=== PATIENT | female | born 1965 | race Caucasian/White ===

== ENCOUNTER 2018-05-27 08:05 | Emergency (ER) | payer BC ==
[2018-05-27 08:20] VITALS: BP 119/69
--- NOTE | 2018-05-27 08:38 | UC ---
Headache HPI - HPI Summary HPI Summary: left side headache x 5 days left side facial pain , teeth ache fatigue, ? fever , chills no nasal congestion , no cough, no ear pain or sore throat - History Of Current Complaint Chief Complaint: UCGeneralIllness Stated Complaint: SINUS COMPLAINT Time Seen by Provider: 05/27/18 08:27 Hx Obtained From: Patient Hx Last Menstrual Period: novasure ablation 2013 ?: No Onset/Duration: Gradual Onset, Lasting Days - 5, Still Present Onset Of Symptoms: Gradual Initially Headache Was: Moderate Currently Pain Is: Moderate Pain Intensity: 0 Timing: Constant Character: Pressure, Migraine Location of Headache: Other: - left side Allevating Factor(s): Nothing Associated Signs And Symptoms: Positive: Sinus Pressure. Negative: Dizziness, Seizure, Nausea, Vomiting, Fever, Neck Pain, Neck Stiffness, Decreased LOC, Visual Changes, Other (Noted In Comments) - Allergies/Home Medications Allergies/Adverse Reactions: Allergies Allergy/AdvReac Type Severity Reaction Status Date / Time nitrofurantoin Allergy Intermediate Hives Verified 05/27/18 08:20 [From Macrobid] Home Medications: Home Medications traZODone TAB* [Desyrel TAB*] 100 mg PO BEDTIME 05/27/18 [History Confirmed 01/08] PMH/Surg Hx/FS Hx/Imm Hx Neurological History: Migraine - Surgical History Surgical History: Yes Surgery Procedure, Year, and Place: 1. ablation - Family History Known Family History: Negative: Diabetes - Social History Alcohol Use: None Substance Use Type: None Smoking Status (MU): Never Smoked Tobacco When Did the Patient Quit Smoking/Using Tobacco: 25 year ago - Immunization History Most Recent Influenza Vaccination: no Review of Systems Constitutional: Negative Skin: Negative Eyes: Negative ENT: Negative Respiratory: Negative Cardiovascular: Negative Gastrointestinal: Negative Neurological: Headache Is Patient Immunocompromised?: No All Other Systems Reviewed And Are Negative: Yes Physical Exam Triage Information Reviewed: Yes Appearance: Well-Appearing, No Pain Distress, Well-Nourished Vital Signs: Initial Vital Signs Temp 98.0 F 05/27/18 08:14 Pulse 79 05/27/18 08:14 Resp 16 05/27/18 08:14 BP 119/69 05/27/18 08:14 Pulse Ox 100 05/27/18 08:14 Vital Signs Reviewed: Yes Eye Exam: Normal Eyes: Positive: Conjunctiva Clear ENT: Positive: Normal ENT inspection, Hearing grossly normal, Pharynx normal Neck: Positive: Supple, Nontender, No Lymphadenopathy Respiratory: Positive: Chest non-tender, Lungs clear, Normal breath sounds, No respiratory distress Cardiovascular: Positive: RRR, No Murmur, Pulses Normal Neurological: Positive: Alert Skin Exam: Normal Headache Course/Dx - Differential Dx/Diagnosis Provider Diagnoses: viral illness. headache Discharge - Sign-Out/Discharge Documenting (check all that apply): Patient Departure All imaging exams completed and their final reports reviewed: No Studies - Discharge Plan Condition: Stable Disposition: HOME Patient Education Materials: Viral Syndrome (ED) Referrals: Du Reinoso MD [Primary Care Provider] - 5 Days - Billing Disposition and Condition Condition: STABLE Disposition: Home
== END 2018-05-27 08:39 | disposition home or self-care (01) ==
LOC: UCCORT 08:05
DX: B34.9 Viral infection, unspecified (principal); R51 Headache; Z87.891 Personal history of nicotine dependence; Z88.3 Allergy status to other anti-infective agents
CPT/HCPCS: 99201; G0463

== ENCOUNTER 2018-08-08 16:12 | Emergency (ER) | payer BC ==
[2018-08-08 16:48] VITALS: BP 124/74
--- NOTE | 2018-08-08 18:18 | UC ---
FLU HPI - HPI Summary HPI Summary: Pt c/o sudden onset of fatigue, sore throat X 4 days. Pt states that she wasn' t feeling well ~ 2 weeks ago and then traveled to [place]. Pt was seen by pcp prior to arrival of and had annual physical exam. Pt states that her exam and tests did not reveal any positive findings. - History of Current Complaint Chief Complaint: UCGeneralIllness Stated Complaint: SORE THROAT,FATIGUE Time Seen by Provider: 08/08/18 17:29 Hx Obtained From: Patient Hx Last Menstrual Period: n/a ?: No Onset/Duration: Gradual Onset, Lasting Days, Still Present Severity Currently: Mild Severity Initially: Moderate Pain Intensity: 8 Associated Signs & Symptoms: Positive: Myalgia, Cough, Sore Throat, Nasal Congestion Related Hx: Possible Flu/Infectious Exposure - Risk Factors Influenza Risk Factors: Negative - Allergy/Home Medications Allergies/Adverse Reactions: Allergies Allergy/AdvReac Type Severity Reaction Status Date / Time nitrofurantoin Allergy Intermediate Hives Verified 08/08/18 16:45 [From Macrobid] PMH/Surg Hx/FS Hx/Imm Hx Previously Healthy: Yes - Surgical History Surgical History: Yes Surgery Procedure, Year, and Place: 1. ablation - Family History Known Family History: Negative: Diabetes - Social History Occupation: Employed Full-time Lives: With Family Alcohol Use: None Substance Use Type: None Smoking Status (MU): Never Smoked Tobacco Have You Smoked in the Last Year: No When Did the Patient Quit Smoking/Using Tobacco: 25 year ago - Immunization History Most Recent Influenza Vaccination: no Review of Systems All Other Systems Reviewed And Are Negative: Yes Constitutional: Positive: Chills, Fatigue Skin: Positive: Negative Eyes: Positive: Negative ENT: Positive: Sore Throat Respiratory: Positive: Cough Cardiovascular: Positive: Negative Gastrointestinal: Positive: Negative Genitourinary: Positive: Negative Motor: Positive: Negative Neurovascular: Positive: Negative Musculoskeletal: Positive: Negative Neurological: Positive: Negative Psychological: Positive: Negative Is Patient Immunocompromised?: No Physical Exam Triage Information Reviewed: Yes Appearance: Other: - fatigued Vital Signs: Initial Vital Signs Temp 99.1 F 08/08/18 16:44 Pulse 74 08/08/18 16:44 Resp 15 08/08/18 16:44 BP 124/74 08/08/18 16:44 Pulse Ox 100 08/08/18 16:44 Vital Signs Reviewed: Yes Eye Exam: Normal ENT: Positive: Pharyngeal erythema, Nasal congestion Dental Exam: Normal Neck exam: Normal Respiratory Exam: Normal Respiratory: Positive: Normal breath sounds Cardiovascular Exam: Normal Musculoskeletal Exam: Normal Neurological Exam: Normal Psychological Exam: Normal Skin Exam: Normal Diagnostics - Laboratory Diagnostic Studies Completed/Ordered: rapid flu: negative. rapid strep: negative Flu Course/Dx - Course Course Of Treatment: I discussed the results of the POC tests done today, recommended that pt f/u with PCP as soon as possible. Additonally, pt said that PCP provided rx for cefdinir and had not began taking medication. Pt c/o was severe sore throat. Pt was instructed to begin RX for Cefdinir and f/u immedidately with PCP. Pt verbalized understnding and agreed to plan of care. CDC and WHO websites were reviewed for any active alerts for illness in [place] at presnt time. Pt was given handout. - Differential Dx/Diagnosis Differential Diagnosis/HQI/PQRI: Bronchitis, Upper Respiratory Infection Provider Diagnoses: sore throat Discharge - Sign-Out/Discharge Documenting (check all that apply): Patient Departure All imaging exams completed and their final reports reviewed: No Studies - Discharge Plan Condition: Stable Disposition: HOME Prescriptions: Fluconazole [Diflucan 150 MG (NF)] 150 mg PO ONCE #2 tab predniSONE TAB* [Deltasone 20 MG TAB*] 20 mg PO DAILY #4 tab Patient Education Materials: Pharyngitis (ED) Referrals: Jorje VILLALPANDO,Nathanael Castaneda [Medical Doctor] - If Needed Du Reinoso MD [Primary Care Provider] - If Needed Additional Instructions: PLEASE USE THE PRESCRIPTION FOR CEFDINIR THAT WAS PREVIOUSLY PRESCRIBED FOR YOU DIRECTED. - Billing Disposition and Condition Condition: STABLE Disposition: Home
== END 2018-08-08 18:24 | disposition home or self-care (01) ==
LOC: UCCORT 16:12
DX: J02.9 Acute pharyngitis, unspecified (principal); R53.83 Other fatigue; Z88.8 Allergy status to other drugs, medicaments and biological substances
CPT/HCPCS: 87070; 87651; 99212; G0463